=== PATIENT | female | born 1995 | race Caucasian/White ===

== ENCOUNTER 2017-07-17 19:46 | Emergency (ER) | payer BC ==
[~2017-07-17] VITALS: Ht 170.2 cm; Wt 80.3 kg
[~2017-07-17 19:46] MED LIST: FLEXERIL10 MG PO; NAPROSYN500 MG PO
[2017-07-17] MEDS ORDERED: FIORICET,ESG1 TABLET PO (21:14)
[2017-07-17 21:40] VITALS: BP 135/96
== END 2017-07-17 21:40 | disposition home or self-care (01) ==
LOC: EME 19:46
DX: S06.0X0A Concussion without loss of consciousness, initial encounter (principal); W50.0XXA Accidental hit or strike by another person, initial encounter; Y93.83 Activity, rough housing and horseplay
CPT/HCPCS: 99281; 99284